=== PATIENT | female | born 1955 | race Caucasian/White ===

== ENCOUNTER 2019-08-31 08:06 | Outpatient (CLI) | payer MEDICARE, SELFPAY ==
--- NOTE | 2019-08-31 08:27 | MM_ITS ---
WS: [id number] BILATERAL DIGITAL SCREENING MAMMOGRAPHY WITH CAD CLINICAL INFORMATION: SCREENING HISTORY: Screening mammogram. No current complaints. COMPARISON: TECHNIQUE: Bilateral CC and MLO views. FINDINGS: The breasts are composed of heterogeneous fibroglandular density tissue, which can limit the detectio n of small underlying mass lesions. Stable Punctate and lucent centered calcifications with breast. N o suspicious mass, asymmetry, calcifications, or architectural distortion. No evidence of malignancy. MM/[id number] IMPRESSION: BI-RADS: 2-Benign FOLLOW UP: 1 Year Follow-up Recommend return to annual screening mammography.
== END 2019-08-31 08:07 | disposition home or self-care (01) ==
LOC: RADSHAW 08:11
PROVIDERS: PCP Nurse Practitioner Family; Visit Provider Nurse Practitioner Family
DX: Z12.31 Encounter for screening mammogram for malignant neoplasm of breast (principal)
CPT/HCPCS: 77067

== ENCOUNTER 2020-07-14 13:24 | Outpatient (CLI) | payer MEDICARE, SELFPAY ==
--- NOTE | 2020-07-14 13:30 | USCV_ITS ---
Dawna Gutierrez Age: 64 Gender: F : 1955 Exam Date: 07/14/2020 13:43 Ordering Phys: Mona Bull MD ([email or web address]) Technologist: Sandra Tompkins Exam Location: [facility] [place] Indication: STENOSIS Risk Factors: Unknown Previous Vascular Surgery: None Right Brachial BP: / Left Brachial BP: / Right Left Velocity (cm/s) Spectral Plaque Velocity (cm/s) Spectral Plaque Syst/Diast Broadening Syst/Diast Broadening 108.10/20.90 Prox CCA 111.40/ 22.00 81.60/ 16.30 Mid CCA 92.50 / 18.30 120.20/29.80 Distal CCA 93.40 / 22.90 146.40/42.90 Prox ICA 109.70/ 29.70 143.80/39.10 Mid ICA 125.20/ 42.60 114.10/28.00 Distal ICA 135.50/ 34.90 124.30 ECA 149.70 1.79 ICA/CCA 1.46 Antegrade Vertebral Antegrade 66.70/ 15.90 cm/s 51.80/ 8.50 cm/s Tri Subclavian Bi 147.6 161.4 0 0 FINDINGS Moderate to heavy heterogeneous plaques of the right bifurcation and internal carotid artery. Moderate heterogeneous plaques at the left bifurcation internal carotid artery Antegrade flow in the vertebral arteries bilaterally Intimal thickening in the common carotid arteries bilaterally Normal Doppler flow velocities in the subclavian arteries bilaterally CONCLUSIONS Moderate to heavy heterogeneous plaques of the right bifurcation and internal carotid arterywith velocity elevation consistent with 50-79% stenosis. Moderate heterogeneous plaques at the left bifurcation internal carotid artery with velocity elevation consistent with 16-49% stenosis. Compared to the study from 04/14/2018, there is worsening of the stenosis on both sides Dr Mona Bull MD [facility] (Electronically Signed) Final Date: 15 July 2020 07:43 S
== END 2020-07-14 13:25 | disposition home or self-care (01) ==
LOC: RAD 13:30
PROVIDERS: PCP Nurse Practitioner Family; Visit Provider Internal Medicine Cardiovascular Disease
DX: I65.23 Occlusion and stenosis of bilateral carotid arteries (principal)
CPT/HCPCS: 93880

== ENCOUNTER 2020-09-01 07:42 | Outpatient (CLI) | payer MEDICARE, SELFPAY ==
--- NOTE | 2020-09-01 07:44 | MM_ITS ---
WS: [id number] BILATERAL DIGITAL SCREENING MAMMOGRAPHY WITH CAD CLINICAL INFORMATION: SCREENING HISTORY: Screening mammogram. No current complaints. COMPARISON: August 31, 2019 TECHNIQUE: Bilateral CC and MLO views. FINDINGS: The breasts are composed of heterogeneous fibroglandular density tissue, which can limit the detectio n of small underlying mass lesions. No suspicious mass, asymmetry, calcifications, or architectural d istortion. No evidence of malignancy. Stable bilateral punctate calcifications. Lucent centered calci fications. MM/[place] [id number] IMPRESSION: BI-RADS: 2-Benign FOLLOW UP: 1 Year Follow-up Recommend return to annual screening mammography.
== END 2020-09-01 07:43 | disposition home or self-care (01) ==
LOC: RADSHAW 07:43
PROVIDERS: PCP Nurse Practitioner Family; Visit Provider Nurse Practitioner Family
DX: Z12.31 Encounter for screening mammogram for malignant neoplasm of breast (principal)
CPT/HCPCS: 77067

== ENCOUNTER 2021-08-14 10:40 | Outpatient (CLI) | payer MEDICARE, SELFPAY ==
--- NOTE | 2021-08-14 10:56 | CT_ITS ---
WS: [id number] LDCT LUNG CANCER SCREENING TECHNIQUE: Noncontrast CT of the chest with coronal and sagittal reformatted images. CLINICAL INFORMATION: HX OF TOBACCO USE/NICOTINE DEPENDENCE, CIGARETTES COMPARISON: CT chest 2017 DLP: 55.77 mGy.cm DIvol: 1.[address] scans at [facility] use at least one of these dose optimization techniques: automat ed exposure control; mA and/or kV adjustment per patient size (includes targeted exams where dose is matched to clinical indication); or iterative reconstruction. FINDINGS: Both lungs are well aerated. No acute pulmonary infiltrates. No focal pneumonia or pleural fluid. Dur ing glands are normal. Cholecystectomy clips. Normal caliber thoracic aorta. No mediastinal or hilar lymphadenopathy. CT/CT lung screening [id number] IMPRESSION: LUNG-RADS: 1-Negative FOLLOW UP: 12 Month: Continue annual screening with LDCT
== END 2021-08-14 10:41 | disposition home or self-care (01) ==
LOC: RAD 10:43
PROVIDERS: PCP Nurse Practitioner Family; Visit Provider Nurse Practitioner Family
DX: Z12.2 Encounter for screening for malignant neoplasm of respiratory organs (principal); Z87.891 Personal history of nicotine dependence
CPT/HCPCS: 71271

== ENCOUNTER 2021-10-04 09:33 | Outpatient (CLI) | payer MEDICARE, SELFPAY ==
--- NOTE | 2021-10-04 09:41 | MM_ITS ---
WS: [id number] SCREENING DIGITAL MAMMOGRAM WITH CAD HISTORY: SCREENING COMPARISON: 09/01/2020, 08/31/2019 and 07/02/2017 Bilateral CC and MLO views submitted. Computer aided detection analyzed. Breast composition: The breasts are heterogeneously dense, which may obscure small masses. Seen on th e LEFT MLO projection is an area of architectural distortion in the posterior LEFT breast above the n ipple line. This may be superimposed fibroglandular tissue or within the soft tissue in the posterior lateral LEFT breast. There are additional benign scattered calcifications throughout each breast. MM/[place] [id number] IMPRESSION: BI-RADS: 0-Incomplete: Need additional imaging evaluation FOLLOW UP: Need Additional Imaging LEFT breast: Spot compression views (CC and MLO). Exaggerated LEFT lateral CC. True ML. Ultrasound to follow if abnormality persists.
== END 2021-10-04 09:34 | disposition home or self-care (01) ==
PROVIDERS: PCP Nurse Practitioner Family; Visit Provider Nurse Practitioner Family
DX: Z12.31 Encounter for screening mammogram for malignant neoplasm of breast (principal)
CPT/HCPCS: 77067

== ENCOUNTER 2021-11-30 09:23 | Outpatient (CLI) | payer MEDICARE, SELFPAY ==
--- NOTE | 2021-11-30 09:34 | MM_ITS ---
WS: [id number] ADDITIONAL VIEWS LEFT MAMMOGRAM LEFT BREAST ULTRASOUND HISTORY: ABNORMAL MAMMO COMPARISON: 08/31/2019, 10/04/2021, 09/01/2020 LEFT MAMMOGRAM: Spot compression views and true ML. Asymmetry in the upper outer quadrant persists of the LEFT breast but becomes less distorted. There a re numerous scattered calcifications. The calcifications are diffuse and not focal or in a group. LEFT BREAST ULTRASOUND 2-D and color Doppler imaging submitted. Ultrasound directed from 12-3 o'clock of the LEFT breast. There is no distortion or mass identified. No cystic or solid mass. MM/[place] [id number] IMPRESSION: BI-RADS: 3-Probably Benign FOLLOW UP: 6 Month Follow-up Recommend diagnostic LEFT mammogram in 6 months and possible ultrasound. Very s light increase in the calcifications seen only on the LEFT MLO view. These are scattered on the CC projection. The area of distortion becomes less apparent on additional imaging but would like additional follow-up to ensure stability.
== END 2021-11-30 09:24 | disposition home or self-care (01) ==
LOC: RADSHAW 09:30
PROVIDERS: PCP Nurse Practitioner Family; Visit Provider Nurse Practitioner Family
DX: R92.8 Other abnormal and inconclusive findings on diagnostic imaging of breast (principal)
CPT/HCPCS: 76642; 77061

== ENCOUNTER 2022-01-08 07:44 | Outpatient (CLI) | payer MEDICARE, SELFPAY ==
--- NOTE | 2022-01-08 08:00 | USCV_ITS ---
Dawna Gutierrez Age: 66 Gender: F : 1955 Exam Date: 01/08/2022 07:58 Ordering Phys: Mona Bull MD ([email or web address]) Technologist: NICOLLE [place] [facility] [place]: EVALUATE FOR CAROTID STENOSIS Risk Factors: Previous Vascular Surgery: Right Brachial BP: / Left Brachial BP: / Right Left Velocity (cm/s) Spectral Plaque Velocity (cm/s) Spectral Plaque Syst/Diast Broadening Syst/Diast Broadening 102.50/22.10 Prox CCA 138.30/ 31.10 88.20/ 17.60 Mid CCA 104.70/ 30.90 91.50/ 22.10 Distal CCA 100.30/ 27.60 161.20/30.40 Prox ICA 132.80/ 28.90 129.00/23.50 Mid ICA 112.90/ 41.40 130.50/45.40 Distal ICA 112.90/ 28.00 153.80 ECA 121.20 1.57 ICA/CCA 0.96 Antegrade Vertebral Antegrade 60.30/ 13.50 cm/s 40.80/ 9.90 cm/s Tri Subclavian Tri 172.5 186.4 0 0 FINDINGS Moderate heterogeneous plaques at the bifurcations and proximal internal carotid arteries bilaterally Intimal thickening in the common carotid arteries bilaterally Antegrade flow in the vertebral arteries bilaterally Near normal Doppler flow velocities in the vertebral and subclavian arteries bilaterally CONCLUSIONS Moderate heterogeneous plaques at the bifurcations and proximal internal carotid arteries bilaterally with the velocity elevations, consistent with less than 50% stenosis(based on modified SRU criteria). Intimal thickening in the common carotid arteries bilaterally. Compared to the study from 07/14/2020, there may not be a significant change Dr Mona Bull MD [facility] (Electronically Signed) Final Date: 09 Jan 2022 09:04 S
== END 2022-01-08 07:45 | disposition home or self-care (01) ==
PROVIDERS: PCP Nurse Practitioner Family; Visit Provider Internal Medicine Cardiovascular Disease
DX: I65.23 Occlusion and stenosis of bilateral carotid arteries (principal); I77.9 Disorder of arteries and arterioles, unspecified; I77.3 Arterial fibromuscular dysplasia
CPT/HCPCS: 93880

== ENCOUNTER → 2022-05-21 09:58 | Outpatient (BNVA) | payer MEDICARE, SELFPAY | PROVIDERS: PCP Nurse Practitioner Family; Visit Provider Internal Medicine Cardiovascular Disease | DX: I65.22 Occlusion and stenosis of left carotid artery (principal); I10 Essential (primary) hypertension; E78.2 Mixed hyperlipidemia; F17.200 Nicotine dependence, unspecified, uncomplicated | CPT/HCPCS: 99214 ==

== ENCOUNTER 2022-06-06 09:23 | Outpatient (CLI) | payer MEDICARE, SELFPAY ==
--- NOTE | 2022-06-06 09:42 | MM_ITS ---
WS: [id number] Diagnostic LEFT MAMMOGRAM with tomosynthesis, CAD,. LEFT BREAST ULTRASOUND HISTORY: ABNORMAL LT MAMMO 6 MO F/U COMPARISON: 11/30/2021, 10/04/2021 and 09/01/2020 LEFT MAMMOGRAM: Spot compression views and true ML with tomosynthesis and sympathetic mammography. No change in the asymmetry of calcifications in the upper outer quadrant of the LEFT breast. No archi tectural distortion. Calcifications are stable. LEFT BREAST ULTRASOUND 2-D and color Doppler imaging submitted. Ultrasound is directed to the upper outer quadrant of the LEFT breast. There are no suspicious findin gs. No shadowing or mass. MM/[place] [id number] IMPRESSION: BI-RADS: 2-Benign FOLLOW UP: 6 Month Follow-up Patient to return to annual mammogram in September 2022.
== END 2022-06-06 09:24 | disposition home or self-care (01) ==
LOC: RAD 09:26
PROVIDERS: PCP Nurse Practitioner Family; Visit Provider Nurse Practitioner Family
DX: R92.8 Other abnormal and inconclusive findings on diagnostic imaging of breast (principal)
CPT/HCPCS: 76642; 77061

== ENCOUNTER → 2023-01-04 09:38 | Outpatient (BNVA) | payer MEDICARE, SELFPAY | PROVIDERS: PCP Nurse Practitioner Family; Visit Provider Nurse Practitioner Family | DX: I65.22 Occlusion and stenosis of left carotid artery (principal); I10 Essential (primary) hypertension; F17.200 Nicotine dependence, unspecified, uncomplicated | CPT/HCPCS: 99214 ==

== ENCOUNTER 2023-01-23 10:53 | Outpatient (CLI) | payer MEDICARE, SELFPAY ==
--- NOTE | 2023-01-23 11:15 | USCV_ITS ---
MattDawna Age: 67 Gender: F : 1955 Exam Date: 01/23/2023 11:16 Ordering Phys: Domi Mascorro Technologist: ROSEY Exam Location: [facility] – [place] Indication: Stenosis Risk Factors: Previous Vascular Surgery: Right Brachial BP: / Left Brachial BP: / Right Left Velocity (cm/s) Spectral Plaque Velocity (cm/s) Spectral Plaque Syst/Diast Broadening Syst/Diast Broadening 104.40/22.90 Prox CCA 126.70/ 26.10 86.10/ 22.00 Mid CCA / 91.50/ 25.40 Distal CCA 98.10 / 32.00 114.40/34.20 Prox ICA 109.20/ 29.80 152.30/37.30 Mid ICA 71.70 / 18.70 101.20/28.90 Distal ICA 88.20 / 35.30 106.60 ECA 87.40 1.46 ICA/CCA 0.86 Antegrade Vertebral Antegrade 43.60/ 13.70 cm/s 40.90/ 5.60 cm/s Tri Subclavian Bi 214.2 136.4 0 0 FINDINGS Comparison:. 01/08/22. No significant elevation of systolic or diastolic velocities. Waveforms are normal. Mild bilateral scattered calcified plaque and intimal thickening throughout the common carotid arteries and extending through the bifurcation. Antegrade vertebral arteries. CONCLUSIONS Bilateral ICA stenosis less than 50%. Mild carotid atherosclerosiss. No interval change in stenosis since prior exam. Dr. Soraya Bosch DO (Electronically Signed) Final Date: 23 Jan 2023 16:14 S
== END 2023-01-23 10:54 | disposition home or self-care (01) ==
PROVIDERS: PCP Nurse Practitioner Family; Visit Provider Nurse Practitioner Family
DX: I65.23 Occlusion and stenosis of bilateral carotid arteries (principal)
CPT/HCPCS: 93880

== ENCOUNTER 2023-06-20 07:46 | Outpatient (CLI) | payer MEDICARE, SELFPAY ==
--- NOTE | 2023-06-20 08:06 | MR_ITS ---
WS: [id number] MRI LUMBAR SPINE NONCONTRAST TECHNIQUE: Sagittal T1, T2 and STIR imaging. Axial T1 and T2 imaging. CLINICAL INFORMATION: CHRONIC LOW BACK PAIN COMPARISON: None. FINDINGS: Mild lumbar curve. No acute compression. No high-grade central canal stenosis. Mild disc bulging lowe r thoracic spine. L1-L2: Mild facet arthropathy. Spinal canal and foramen are patent. L2-L3: Mild facet arthropathy. Mild LEFT and no significant RIGHT foraminal narrowing. L3-L4: Mild annular bulging. Spinal canal and foramina are patent. Mild facet arthropathy. L4-L5: Mild annular bulging. Mild facet arthropathy. Mild bilateral foraminal narrowing. L5-S1: Mild annular bulging with osteophytic ridging. Mild facet arthropathy. Mild RIGHT foraminal na rrowing. Visualized pelvic bony structures: Paravertebral soft tissues: Normal. IMPRESSION: 1. Mild lumbar curve. No acute compression. No high-grade central canal stenosis. 2. No high-grade spinal canal or foraminal narrowing. 3. Tiny foraminal protrusions L4-5 with mild foraminal narrowing without significant nerve root impi ngement. 4. Mild disc osteophytic ridging L5-S1 without significant spinal canal narrowing. Mild RIGHT forami nal narrowing. 5. Mild facet arthropathy L4-L5 and L5-S1.
== END 2023-06-20 07:47 | disposition home or self-care (01) ==
LOC: RAD 07:48
PROVIDERS: PCP Nurse Practitioner Family; Visit Provider Nurse Practitioner Family
DX: M47.817 Spondylosis without myelopathy or radiculopathy, lumbosacral region (principal); M25.78 Osteophyte, vertebrae; G89.29 Other chronic pain
CPT/HCPCS: 72148

== ENCOUNTER → 2023-07-26 09:51 | Outpatient (BNVA) | payer MEDICARE, SELFPAY | PROVIDERS: PCP Nurse Practitioner Family; Visit Provider Nurse Practitioner Family | DX: I10 Essential (primary) hypertension (principal); I65.22 Occlusion and stenosis of left carotid artery; F17.200 Nicotine dependence, unspecified, uncomplicated | CPT/HCPCS: 99214 ==

== ENCOUNTER → 2023-07-30 07:32 | Outpatient (BNVA) | payer MEDICARE, SELFPAY | PROVIDERS: PCP Nurse Practitioner Family; Referring Provider Nurse Practitioner Family; Visit Provider Psychiatry & Neurology Neurology | DX: R20.2 Paresthesia of skin (principal); R68.89 Other general symptoms and signs; R29.898 Other symptoms and signs involving the musculoskeletal system; E55.9 Vitamin D deficiency, unspecified; M79.2 Neuralgia and neuritis, unspecified; I73.9 Peripheral vascular disease, unspecified | CPT/HCPCS: 36415; 82306; 82607; 82746; 83735; 83921; 86592; 86617; 86780; 99203 ==

== ENCOUNTER → 2023-08-15 11:59 | Outpatient (BNVA) | payer MEDICARE, SELFPAY | PROVIDERS: PCP Nurse Practitioner Family; Visit Provider Psychiatry & Neurology Neurology | DX: G56.01 Carpal tunnel syndrome, right upper limb (principal) | CPT/HCPCS: 95911 ==

== ENCOUNTER 2023-08-18 08:22 | Emergency (ER) | payer MEDICARE, MEDICAID, SELFPAY ==
[2023-08-18 08:32] VITALS: BP 138/78; PULSE 73; RESP 18; TEMP 36.7; O2SAT 97; BMI 30.5
--- NOTE | 2023-08-18 08:54 | W.ED.FEMALGU ---
HPI - Female Genitourinary General: Chief complaint: Urogenital-Female Stated complaint: frequent/burning urination Time Seen by Provider: 08/18/23 08:25 History of Present Illness: Patient presents to the ER with frequent and burning urination. Patient is finished Macrobid for urinary tract infection through the urgent care about 2 days ago. Patient said she was better while she was on it but started going downhill today with root returning symptoms. No frequency and burning. Review of Systems General: Reports: 10 or more systems reviewed and unremarkable except in HPI and below PFSH ED PFSH: Medical History Smoking Hyperlipidemia GERD (gastroesophageal reflux disease) Carotid artery disease Anxiety and depression Neuropathy Psoriasis Macular degeneration Surgical History S/P rotator cuff repair Hx of cholecystectomy Family History Mother CAD (coronary artery disease) Cancer Dementia Father CAD (coronary artery disease) Diabetes Sister Diabetes Denies family history of Clotting disorder Chronic kidney disease (CKD) Suicide Anesthesia complication Bleeding disorder Lung disease Stroke Social History Smoking and tobacco/nicotine status: current every day tobacco/nicotine user Alcohol intake: never Substance/Drug Use: never Physical Exam Const: COMMON NORMALS: no acute distress, average body habitus, patient oriented x3, no limitations, healthy appearing, alert and well nourished Neck/C-Spine: COMMON NORMALS: no JVD Chest: COMMONS NORMALS: normal inspection of the chest and normal palpation of entire chest wall Resp: COMMON NORMALS: normal respiratory effort, No retractions, No use of accessory muscles and clear to auscultation bilaterally AUSCULTATION: clear to auscultation bilaterally Cardio: COMMON NORMALS: no JVD, regular rate, regular rhythm, S1 normal heart sound present, S2 normal heart sound present, No gallops present (Cardio), No clicks present (Cardio), No murmurs present (Cardio) and No rub (Cardio) RATE: regular rate RHYTHM: regular rhythm HEART SOUNDS: S1 normal heart sound present and S2 normal heart sound present GI: COMMON NORMALS: Normal to inspection, nondistended, normoactive bowel sounds present, Soft to palpation, non-tender, No hepatosplenomegaly present and no masses PALPATION: Yes Soft to palpation and Yes No hepatosplenomegaly present Neuro: COMMON NORMALS: patient oriented x3 SENSORIUM/ORIENTATION: Yes alert Course Vital Signs: Vital signs: Vital Signs Temperature 98.1 F 08/18/23 08:32 Pulse Rate 73 08/18/23 08:32 Respiratory Rate 18 08/18/23 08:32 Blood Pressure 138/78 08/18/23 08:32 Pulse Oximetry 97 08/18/23 08:32 Oxygen Delivery Me thod Room Air 08/18/23 08:32 MDM - Female Medical Decision Making Urinalysis obtained which showed a significant urinary tract infection. Patient will be given 1 g Rocephin here in the ER and discharged home with a prescription for Levaquin 500 mg number seven 1 pill daily. Patient should have her urine rechecked when she is finished with these antibiotics. Differential Diagnosis Unlikely abdominal pain, acute appendicitis, calculus of kidney, constipation, diverticulitis, endometriosis, gastroenteritis, pancreatitis or small bowel obstruction Medical Records I reviewed the patient's medical records. Lab Data I reviewed the patient's lab results. Laboratory Results Urine Color Yellow (Yellow) 08/18/23 08:45 Urine Appearance Sl hazy (CLEAR) A 08/18/23 08:45 Urine pH 6.5 (5-7) 08/18/23 08:45 Ur Specific Donie 1.000 (1.005-1.030) L 08/18/23 08:45 Urine Protein Neg (Negative) 08/18/23 08:45 Urine Glucose (UA) Norm (Normal) 08/18/23 08:45 Urine Ketones 1+ (Negative) H 08/18/23 08:45 Urine Blood 3+ (Negative) H 08/18/23 08:45 Urine Nitrate Negative (Negative) 08/18/23 08:45 Urine Bilirubin Neg (Negative) 08/18/23 08:45 Urine Urobilinogen Norm mg/dL (Negative) 08/18/23 08:45 Ur Leukocyte Esterase 2+ (Negative) H 08/18/23 08:45 Urine RBC 0-4 /hpf (0-2) H 08/18/23 08:45 Urine WBC >100 /hpf (0-5) H 08/18/23 08:45 Ur Squamous Epith Cells 5-10 /hpf (0-5) H 08/18/23 08:45 Amorphous Sediment Not Reportable 08/18/23 08:45 Urine Bacteria 1+ /hpf (NONE) H 08/18/23 08:45 All radiology interpretation(s) finalized by discharge Discharge Plan Discharge Patient Disposition: Home Clinical Impression: Urinary tract infection Condition: Stable Prescriptions: No Action cholecalciferol (vitamin D3) 125 mcg (5,000 unit) capsule 125 mcg PO QDAY amitriptyline 50 mg tablet 50 mg PO DAILY atorvastatin 20 mg tablet 20 mg PO DAILY Otezla 30 mg tablet 30 mg PO BID omeprazole 40 mg capsule,delayed release(DR/EC) 40 mg PO DAILY alprazolam 0.25 mg tablet 0.25 mg PO BID PRN Ozempic 1 mg/dose (4 mg/3 mL) pen injector See Rx Instructions SUBCUT .COMPLEX PRN Rx Instructions: subcutaneously PRN; losartan 25 mg tablet 25 mg PO DAILY Qty: 90 3RF folic acid 1 mg tablet 1 mg PO DAILY Qty: 90 3RF Discharge Orders: Discharge ED (Routine); Ordered 08/18/23 Ordered By: Fer Cruz Referrals: Sandra Fallon FNP [Primary Care Provider] - 1 week Patient Instructions: Urinary Tract Infection - Women Activity Restrictions/Additional Instructions: Please take all your antibiotics as directed, please drink plenty of fluids to flush out your system. Please follow-up with your family practice physician within the next 7 to 10 days for further evaluation and treatment. Coding Level of Care Code ED Aircraft Inspection Record Clerk for Maye Guzmán
[2023-08-18 09:14] LABS: Add Urine Culture? Yes; Add Urine Microscopic? YES; Bacteria Urine 1+ /hpf; Bilirubin Urine Neg (Negative); Blood Urine 3+ (Negative); Glucose Urine UA Norm (Normal); Ketones Urine 1+ (Negative); Leukocyte Esterase Urine 2+ (Negative); Nitrate Urine Negative (Negative); Protein Urine Neg (Negative); RBC Urine 0-4 /hpf (0-2); Urine Appearance SL Hazy (CLEAR); Urine Color Yellow (Yellow); Urobilinogen Urine Norm (Negative); WBC Urine >100 /hpf (0-5); pH Urine 6.5 (5-7)
[2023-08-18] MEDS: cefTRIAXone 1,000 MG in water for injection-sterile 2.1 ML 1 MG IM (09:42)
[2023-08-18 09:56] VITALS: BP 138/78; PULSE 76; O2SAT 97
== END 2023-08-18 09:57 | disposition home or self-care (01) ==
PROVIDERS: Emergency Provider Emergency Medicine; PCP Nurse Practitioner Family
DX: N39.0 Urinary tract infection, site not specified (principal); Z72.0 Tobacco use; E78.5 Hyperlipidemia, unspecified; H35.30 Unspecified macular degeneration
CPT/HCPCS: 81001; 87077; 87086; 87186; 99284; J0696

== ENCOUNTER 2023-08-23 10:41 | Emergency (ER) | payer MEDICARE, MEDICAID, SELFPAY ==
[2023-08-23 10:59] VITALS: BP 120/75; PULSE 68; RESP 18; TEMP 36.6; O2SAT 92; BMI 29.9
--- NOTE | 2023-08-23 11:00 | XRR_ITS ---
PROCEDURE INFORMATION: Exam: XR Chest Exam date and time: 08/23/2023 11:21 AM Age: 67 years old Clinical indication: Cough TECHNIQUE: Imaging protocol: Radiologic exam of the chest. Views: 1 view. COMPARISON: CT lung screening [id number] 08/14/2021 11:08 AM FINDINGS: Lungs: Unremarkable. No consolidation. Pleural spaces: Unremarkable. No pleural effusion. No pneumothorax. Heart/Mediastinum: Unremarkable. No cardiomegaly. Bones/joints: Unremarkable. XR/XR chest 1V portable [id number] IMPRESSION: No acute findings.
--- NOTE | 2023-08-23 11:07 | ECG_ITS ---
[facility] Test Date: 2023-08-23 Pat Name: Dawna Gutierrez Department: Room: Gender: Female Group Sales Manager: : 1955 Requested By: Becca Young Order Number: [id number] Javan MD: Naren Ray M.D. Measurements Intervals [place] Rate: 65 P: 58 MO: 127 QRS: 79 QRSD: 93 T: 38 QT: 401 QTc: 420 Interpretive Statements SINUS RHYTHM NONSPECIFIC ST & T-WAVE ABNORMALITY No previous ECG available for comparison Electronically Signed On 08-23-2023 14:55:32 CORRECTIONS CASEWORKER by Naren Ray M.D. [id number]
--- NOTE | 2023-08-23 11:18 | ED_ITS ---
HPI - SOB/Dyspnea General: Chief Complaint: Shortness of Breath/Dyspnea Stated Complaint: cough,congestion Time Seen by Provider: 08/23/23 10:57 Source: patient Mode of arrival: ambulatory Limitations: no limitations History of Present Illness: HPI Narrative: 67-year-old female who states that over the last 4 days she has been having cough congestion body aches. States she seen in urgent care she is currently on steroids and albuterol she was seen the day before Ella actually on the Levaquin for a UTI nerve other symptoms started after that. She states she has had some worse wheezing today she is in no distress here. Denies any chest pain. Associated symptoms: Deny abdominal pain, chest pain, fever(s), nausea or vomiti ng Review of Systems Const: Denies: fever(s), chills, body aches or change in appetite ENMT: Reports: nasal congestion; Denies: throat pain or dental pain Card: Denies: chest pain Resp: Reports: non-productive cough and wheezing; Denies: dyspnea GI: Denies: abdominal pain, nausea, vomiting or diarrhea Musc: Denies: neck pain or back pain Skin/Breast: Denies: rash Neuro: Denies: headache(s) PFSH ED PFSH: Medical History Smoking Hyperlipidemia GERD (gastroesophageal reflux disease) Carotid artery disease Anxiety and depression Neuropathy Psoriasis Macular degeneration Surgical History S/P rotator cuff repair Hx of cholecystectomy Family History Mother CAD (coronary artery disease) Cancer Dementia Father CAD (coronary artery disease) Diabetes Sister Diabetes Denies family history of Clotting disorder Chronic kidney disease (CKD) Suicide Anesthesia complication Bleeding disorder Lung disease Stroke Social History Smoking and tobacco/nicotine status: current every day tobacco/nicotine user Alcohol intake: never Substance/Drug Use: never Physical Exam Const: COMMON NORMALS: no acute distress, patient oriented x3 and healthy appearing HENMT: COMMON NORMALS: normocephalic and atraumatic HEAD & SCALP: normocephalic and atraumatic Neck/C-Spine: COMMON NORMALS: full ROM and supple Chest: COMMONS NORMALS: normal inspection of the chest Resp: COMMON NORMALS: normal respiratory effort and No retractions AUSCULTATION: wheezes Cardio: COMMON NORMALS: regular rate, regular rhythm and No murmurs present (Cardio) RATE: regular rate RHYTHM: regular rhythm Extremity: COMMON NORMALS: normal to inspection and full ROM Neuro: COMMON NORMALS: patient oriented x3, moves all extremities and no focal motor deficits Psych: COMMON NORMALS: mental status grossly normal, Normal thought process present and cooperative THOUGHT PROCESS: Normal thought process present Skin: COMMON NORMALS: no rashes or lesions noted and no wounds GENERAL SKIN EXAM: no rashes or lesions noted Course Vital Signs: Vital signs: Vital Signs Temperature 98 F 08/23/23 10:59 Pulse Rate 66 08/23/23 12:02 Respiratory Rate 18 08/23/23 11:57 Blood Pressure 137/70 08/23/23 11:32 Pulse Oximetry 91 08/23/23 11:57 Oxygen Delivery Me thod Room Air 08/23/23 11:57 MDM - SOB/Dyspnea Medical Decision Making Patient presents with cough congestion likely a viral upper respiratory infection x-ray shows no pneumonia she is to continue her antibiotics steroids and albuterol she is follow-up with PCP and return if worsening. Medical Records I reviewed the patient's medical records. Lab Data I reviewed the patient's lab results. Labs/Radiology: Radiology Impressions Chest X-Ray 08/23/23 11:00 IMPRESSION: No acute findings. Laboratory Results Influenza Type A Ag negative (Negative) 08/23/23 11:22 Influenza Type B Ag negative (Negative) 08/23/23 11:22 SARS-CoV-2 Ag (Rapid) negative (Negative) 08/23/23 11:22 All radiology interpretation(s) finalized by discharge EKG Data EKG 1: I personally reviewed and interpreted this EKG as follows: EKG Interpretation Date: 08/23/23 EKG interpretation time: 11:07 Interpretation: nsr hr [address] or t wave abnormalities qrs 93 qtc 413 Discharge Plan Discharge Patient Disposition: Home Clinical Impression: Upper respiratory infection Qualifiers: URI type: unspecified URI Qualified Code(s): J06.9 - Acute upper respiratory infection, unspecified Condition: Stable Prescriptions: No Action cholecalciferol (vitamin D3) 125 mcg (5,000 unit) capsule 125 mcg PO QDAY amitriptyline 50 mg tablet 50 mg PO DAILY atorvastatin 20 mg tablet 20 mg PO QPM Otezla 30 mg tablet 30 mg PO BID omeprazole 40 mg capsule,delayed release(DR/EC) 40 mg PO DAILY alprazolam 0.25 mg tablet 0.25 mg PO BID PRN (Reason: Anxiety) Ozempic 1 mg/dose (4 mg/3 mL) pen injector 0.5 mg SUBCUT Q7D Rx Instructions: ON SATURDAY losartan 25 mg tablet 25 mg PO DAILY Qty: 90 3RF folic acid 1 mg tablet 1 mg PO DAILY Qty: 90 3RF levofloxacin 500 mg tablet 500 mg PO DAILY 7 Days Qty: 7 0RF promethazine-DM 6.25-15 mg/5 mL Syrup 5 ml PO Q4H PRN (Reason: Cough) ketoconazole 2 % shampoo 1 applic TOPICAL Q30D prednisone 20 mg tablet 20 mg PO DAILY Ventolin HFA 90 mcg/actuation HFA aerosol inhaler 2 puff INHALATION Q6H PRN (Reason: Shortness Of Breath Or Wheezing) Discharge Orders: Discharge ED (Routine); Ordered 08/23/23 Ordered By: Becca Young Referrals: Sandra Fallon FNP [Primary Care Provider] - 1-3 days Discharge Diet: Advance as tolerated Discharge Activity: Resume usual activity Patient Instructions: Upper Respiratory Infection (ED) Coding Level of Care Code ED Lay Out Drafter for Maye Guzmán
[2023-08-23 11:32] VITALS: BP 137/70; PULSE 70; RESP 16; O2SAT 92
[2023-08-23] MEDS: ipratropium-albuterol 3 mL Neb INHALATION (11:56)
[2023-08-23 11:57] VITALS: PULSE 63; RESP 18; O2SAT 91
[2023-08-23 11:58] LABS: Influenza A by IFA negative (Negative); Influenza B by IFA negative (Negative); SARS Covid-2 Antigen negative (Negative)
[2023-08-23 12:02] VITALS: PULSE 66
[2023-08-23 12:18] VITALS: BP 131/67; PULSE 70; RESP 18; O2SAT 91
== END 2023-08-23 12:21 | disposition home or self-care (01) ==
PROVIDERS: Emergency Provider Emergency Medicine; PCP Nurse Practitioner Family
DX: J06.9 Acute upper respiratory infection, unspecified (principal); Z72.0 Tobacco use; E78.5 Hyperlipidemia, unspecified; H35.30 Unspecified macular degeneration; Z11.52 Encounter for screening for COVID-19
CPT/HCPCS: 71045; 87426; 87804; 93005; 94640; 99285

== ENCOUNTER 2023-09-20 07:39 | Outpatient (CLI) | payer MEDICARE, SELFPAY ==
--- NOTE | 2023-09-20 08:00 | USCV_ITS ---
Dawna Gutierrez Age: 67 Gender: F : 1955 Exam Date: 09/20/2023 07:57 Ordering Phys: Godfrey Rai MD Technologist: THANG [place] [facility] [place] Risk Factors: Previous Vascular Surgery: RIGHT LEFT BP: 137.0 / 77.00 BP: 144.0/ 88.00 0 0 Waveform Velocity (cm/s) Velocity (cm/s) Waveform Triphasic 165.8 Iliac Prox 142.8 Triphasic Triphasic 164.9 Iliac Mid 126.0 Triphasic Triphasic 158.1 Iliac Distal 0.0 Triphasic Triphasic 140.7 AP OPERATOR 164.3 Triphasic Triphasic 101.2 SFA Prox 114.6 Triphasic Triphasic 124.3 SFA Mid 108.8 Triphasic Triphasic SFA Dist Triphasic 81.6 86.0 Triphasic 67.5 POP 78.3 Triphasic Biphasic 75.3 WRAPPER STEMMER OPERATOR 64.9 Triphasic Biphasic 54.1 DPA 40.2 Biphasic 1.1 MARLENA 1.1 FINDINGS Resting MARLENA 1.1 on the right side and 1.1 bilaterally. The duplex scan revealed intimal thickening and minimal plaques in the iliac and femoral arteries bilaterally. Normal/near normal arterial Doppler waveforms and velocities CONCLUSIONS Normal resting ABIs bilaterally Normal/near normal arterial Doppler velocities and waveforms. No evidence of any significant arterial obstruction, based on the above findings. Dr Mona Bull MD [facility] (Electronically Signed) Final Date: 20 September 2023 18:15 S
== END 2023-09-20 07:40 | disposition home or self-care (01) ==
LOC: RAD 07:39
PROVIDERS: PCP Nurse Practitioner Family; Visit Provider Psychiatry & Neurology Neurology
DX: I73.9 Peripheral vascular disease, unspecified (principal); R29.898 Other symptoms and signs involving the musculoskeletal system; R20.2 Paresthesia of skin
CPT/HCPCS: 93925

== ENCOUNTER 2023-10-14 08:46 | Outpatient (CLI) | payer MEDICARE, SELFPAY ==
--- NOTE | 2023-10-14 09:00 | MM_ITS ---
WS: [id number] BILATERAL SCREENING DIGITAL TOMOSYNTHESIS MAMMOGRAM WITH CAD HISTORY: SCREENING COMPARISON: 06/06/2022, 11/30/2021 and 07/16/2018 Bilateral CC and MLO views with tomosynthesis and synthetic mammography submitted. Computer aided det ection analyzed. Breast composition: There are scattered areas of fibroglandular density. No suspicious masses, microc alcifications or architectural distortion. Reidentified is the mild asymmetry and slight distortion i n the central posterior LEFT breast which has been present on multiple prior studies. Numerous benign calcifications have slightly increased in number. IMPRESSION: MM/[place] [id number] BI-RADS: 2-Benign FOLLOW UP: 1 Year Follow-up
== END 2023-10-14 08:47 | disposition home or self-care (01) ==
LOC: RAD 08:47
PROVIDERS: PCP Nurse Practitioner Family; Visit Provider Nurse Practitioner Family
DX: Z12.31 Encounter for screening mammogram for malignant neoplasm of breast (principal); R92.323 Mammographic fibroglandular density, bilateral breasts; N64.89 Other specified disorders of breast; R92.1 Mammographic calcification found on diagnostic imaging of breast
CPT/HCPCS: 77063; 77067

== ENCOUNTER → 2024-01-09 10:14 | Outpatient (BNVA) | payer MEDICARE, SELFPAY | PROVIDERS: PCP Nurse Practitioner Family; Visit Provider Psychiatry & Neurology Neurology | DX: R20.2 Paresthesia of skin (principal); R68.89 Other general symptoms and signs; R29.898 Other symptoms and signs involving the musculoskeletal system | CPT/HCPCS: 99212 ==

== ENCOUNTER → 2024-01-21 09:51 | Outpatient (BNVA) | payer MEDICARE, SELFPAY | PROVIDERS: PCP Nurse Practitioner Family; Visit Provider Internal Medicine Cardiovascular Disease | DX: I65.23 Occlusion and stenosis of bilateral carotid arteries (principal); F17.200 Nicotine dependence, unspecified, uncomplicated; E78.2 Mixed hyperlipidemia; I10 Essential (primary) hypertension | CPT/HCPCS: 99214 ==

== ENCOUNTER 2024-01-28 07:55 | Outpatient (CLI) | payer MEDICARE, SELFPAY ==
--- NOTE | 2024-01-28 08:00 | USCV_ITS ---
Matt Dawna Age: 68 Gender: F : 1955 Exam Date: 01/28/2024 08:04 Ordering Phys: Mona Bull MD ([email or web address]) Technologist: DARYL [place] [facility] [place]: stenosis Risk Factors: Previous Vascular Surgery: Right Brachial BP: / Left Brachial BP: / Right Left Velocity (cm/s) Spectral Plaque Velocity (cm/s) Spectral Plaque Syst/Diast Broadening Syst/Diast Broadening 123.90/18.10 Prox CCA 86.20 / 16.80 92.90/ 19.90 Mid CCA 91.60 / 27.70 92.90/ 23.50 Distal CCA 93.50 / 27.70 134.80/34.60 Prox ICA 84.20 / 25.10 77.30/ 21.10 Mid ICA 85.70 / 28.20 65.50/ 17.80 Distal ICA 80.50 / 21.90 132.40 ECA 75.50 1.50 ICA/CCA 1.40 Antegrade Vertebral Antegrade 45.00/ 11.20 cm/s 62.00/ 17.90 cm/s Tri Subclavian Bi 210.0 134.1 0 0 FINDINGS Comparison:. 01/23/23 Mild tubulence without stenosis. Diffuse bilateral scattered calcified plaque and intimal thickening throughout the common carotid arteries and extending through the bifurcation. Antegrade vertebral arteries. Mid to distal ICA's not well visualized due to technique. CONCLUSIONS Bilateral ICA stenosis less than 50%. No interval change in stenosis since prior exam. Dr. Soraya Bosch DO (Electronically Signed) Final Date: 28 January 2024 09:52 S
== END 2024-01-28 07:56 | disposition home or self-care (01) ==
LOC: RAD 07:55
PROVIDERS: PCP Nurse Practitioner Family; Visit Provider Internal Medicine Cardiovascular Disease
DX: I65.23 Occlusion and stenosis of bilateral carotid arteries (principal)
CPT/HCPCS: 93880

== ENCOUNTER → 2024-03-03 09:28 | Outpatient (BNVA) | payer MEDICARE, SELFPAY | PROVIDERS: PCP Nurse Practitioner Family; Visit Provider Podiatrist Foot & Ankle Surgery | DX: M79.671 Pain in right foot (principal); M79.672 Pain in left foot; Q82.8 Other specified congenital malformations of skin; M10.9 Gout, unspecified | CPT/HCPCS: 17110; 73630; 99203 ==

== ENCOUNTER 2024-05-11 14:09 | Outpatient (CLI) | payer MEDICARE, SELFPAY ==
--- NOTE | 2024-05-11 14:11 | CT_ITS ---
WS: [id number] CT NECK WITH AND WITHOUT CONTRAST HISTORY: MASS OF L PAROTID GLAND TECHNIQUE: Contiguous 2 mm axial images are performed through the neck with and without intravenous c ontrast. Sagittal and coronal reformats are also submitted. All CT scans at [facility] use at least one of these dose optimization techniques: automated exposure control; mA and/or kV adjustment per patient size (includes targeted exams where dose is matched to clinical indication); or iterativ e reconstruction. CONTRAST: CONTRAST: Omnipaque 350; 100 mL IV. DLP: 336.14 mGy.cm COMPARISON: Ultrasound 04/20/2024 Well-circumscribed high density mass with enhancement centered in the superior LEFT parotid gland. La rge dominant mass measures 1.7 x 1.9 x 1.8 cm and is surrounded by parotid tissue. There is a separat e similar ileal enhancing mass in the tail of the parotid gland measuring 0.7 x 0.8 x 1.0 cm. Both of these nodules are in the superficial gland. There are a few additional enhancing nodules within the parotid which are probably lymph nodes. RIGHT parotid: Small intraparotid lymph nodes. No well-circumscribed enhancing mass. Small level 1, level 2 and level 3 lymph nodes. The largest lymph node at level 2A is 9 mm in transve rse diameter. Similar lymph node on the RIGHT. Nasopharynx, oropharynx and larynx are negative. Vocal cords are normal. No tongue base abnormality. No significant paranasal sinus disease. Mastoid air cells are clear. Visualized calvarium and intracr anial structures are negative. CT/CT neck wo/w con [id number] IMPRESSION: 1. Two well-circumscribed enhancing masses in the superficial LEFT parotid. Th e largest in the superior parotid measures 1.7 x 1.9 x 1.8 cm. The smaller paro tid mass is in the tail measuring 0.7 x 0.8 x 1.0 cm. Differential includes bot h benign and malignant etiologies. 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 This is a benign tumor but usually resected due to risk of malignant degene ration. Recommend evaluation by ENT. 2. Negative RIGHT parotid gland. 3. Small, subcentimeter bilateral level 3 lymph nodes.
[2024-05-11] MEDS: iohexol 350 mg/mL 500 mL Btl (per mL) IV (15:07)
== END 2024-05-11 14:10 | disposition home or self-care (01) ==
LOC: RAD 14:09
PROVIDERS: PCP Nurse Practitioner Family; Visit Provider Nurse Practitioner Family
DX: D37.030 Neoplasm of uncertain behavior of the parotid salivary glands (principal)
CPT/HCPCS: 70492

== ENCOUNTER 2024-09-01 11:19 | Observation (INO) | payer MEDICARE, SELFPAY ==
[2024-09-01] VITALS (20 sets, daily range): BP systolic 106–128; BP diastolic 52–66; PULSE 64–90; RESP 14–19; TEMP 36.1–37.1; O2SAT 91–98; BMI 25.2; BMI 24.7
[2024-09-01 06:31] LABS: Glucose Point of Care 110 mg/dL (70-110)
[2024-09-01] MEDS: sodium chloride 0.9% 1,000 ML 30 ML IV (06:31)
--- NOTE | 2024-09-01 06:53 | W.PM.OPSUD ---
Surgery/Procedure H&P Update DATE OF PROCEDURE: September 01, 2024 DATE H&P PERFORMED: 08/07/24 CHANGES TO PREVIOUS DOCUMENTATION: None PRIMARY INDICATION FOR PROCEDURE: Left parotid mass PLANNED PROCEDURE: Operation Date: 09/01/24 07:00 Proposed Procedures p Parotidectomy(Left) - Dewey Tolbert MD s Abdominal Fat Graft(Not Applicable) - Dewey Tolbert MD
[2024-09-01] MEDS: ceFAZolin 2,000 mg SDV 2000 MG IVP ×3 (07:05→22:07)
--- NOTE | 2024-09-01 07:20 | ANES.PREANE2 ---
Pre-Anesthetic Assessment Height/Weight: Height 1.8 m Weight 82.1 kg Temp Pulse Resp BP Pulse Ox O2 Del Method 98.0 F 64 17 123/61 97 Room Air 09/01/24 06:05 09/01/24 06:05 09/01/24 06:05 09/01/24 06:05 09/01/24 06:05 09/01/24 06:05 Operation Date: 09/01/24 07:00 Proposed Procedures p Parotidectomy(Left) - Dewey Tolbert MD s Abdominal Fat Graft(Not Applicable) - Dewey Tolbert MD Familial anesthetic complications: none Was Beta Thai taken within 24 hours: N/A Was Clonidine taken within 24 hours: N/A Last intake: Intake Last Liquid Date 08/31/24 Last Liquid Time 22:00 Last Solid Date 08/31/24 Last Solid Time 20:00 Social Tobacco and No alcohol Exam alert, oriented x 3 and regular rate & rhythm Airway Submandibular: within normal limits Cervical ROM: within normal limits Mallampati: Class II Dentition: false (Implanted upper and lower) CV/HEM Hypertension and Peripheral Vascular Disease GI Gastroesophageal Reflux Disease Metabolic Diabetes Mellitus Anesthetic Plan ASA status: 3 Anesthesia: General Medications/Allergies Home Medications Medication Instructions Recorded Confirmed Last Taken Type amitriptyline 50 mg tablet 50 mg PO DAILY 06/20/20 08/31/24 08/31/24 History apremilast 30 mg tablet (Otezla) 30 mg PO BID 06/20/20 08/31/24 08/31/24 History atorvastatin 20 mg tablet 20 mg PO QPM 06/20/20 08/31/24 08/31/24 History alprazolam 0.25 mg tablet 0.25 mg PO BID PRN Anxiety 05/22/21 08/31/24 08/31/24 History omeprazole 40 mg capsule,delayed 40 mg PO DAILY 05/21/22 08/31/24 08/31/24 History release losartan 25 mg tablet 25 mg PO DAILY #90 tabs 12/03/22 09/01/24 08/30/24 Rx semaglutide 1 mg/dose (4 mg/3 mL) 0.5 mg SUBCUT Q7D 07/26/23 08/31/24 08/23/24 History subcutaneous pen injector (Ozempic) folic acid 1 mg tablet 1 mg PO DAILY #90 tabs 08/20/24 08/31/24 08/31/24 Rx cholecalciferol (vitamin D3) 1,250 1,250 mcg PO .Q14D 08/31/24 08/31/24 Unknown History mcg (50,000 unit) capsule gluc imum-iebkaccahdfx-mhyesof 1 ea mucous membrane PRN 08/31/24 08/31/24 08/31/24 History mouthwash Allergies Allergy/AdvReac Type Severity Reaction Status Date / Time No Known Allergies Allergy Verified 09/01/24 06:01 Current Medications Generic Name Dose Route Start Last Admin Trade Name Freq PRN Reason Stop Dose Admin Sodium Chloride 1,000 mls @ 30 mls/hr 09/01/24 06:00 09/01/24 06:31 Sodium Chloride 0.9% IV 09/02/24 05:59 30 mls/hr .Q24H SHAD Administration PFSH Anesthesia Medical History Smoking Hyperlipidemia GERD (gastroesophageal reflux disease) Carotid artery disease Anxiety and depression Neuropathy Psoriasis Macular degeneration Surgical History S/P rotator cuff repair Hx of cholecystectomy Family History Mother CAD (coronary artery disease) Cancer Dementia Father CAD (coronary artery disease) Diabetes Sister Diabetes Denies family history of Clotting disorder Chronic kidney disease (CKD) Suicide Anesthesia complication Bleeding disorder Lung disease Stroke Social History Smoking and tobacco/nicotine status: never used tobacco/nicotine Alcohol intake: never Substance/Drug Use: never Data Anesthesia Cardiac Studies: No Data to Display
[2024-09-01] MEDS: ceFAZolin 1,000 mg SDV 1000 MG IRRIGATION (08:03)
[2024-09-01] MEDS: lidocaine-epi 1% 20 mL INJ 10 ML INJECTION (08:03)
[2024-09-01] MEDS: neomycin-poly-bacitracin oint 28 gm 1 APPLIC TOPICAL (09:31)
[2024-09-01] MEDS: fluorescein 1 mg Strip 2 MG XX (09:46)
[2024-09-01] MEDS: EPINEPHrine 1 mg/mL INJ 2 MG XX (09:46)
--- NOTE | 2024-09-01 09:53 | PC.NURSE ---
Notified family (Tracey) of status of case. All questions answered.
[2024-09-01] MEDS: thrombin 5,000 unit SDV 5000 UNIT XX (10:11)
--- NOTE | 2024-09-01 11:11 | P.OP_ITS ---
Operative Report Date of procedure: September 01, 2024 Pre-op diagnosis: Left parotid gland mass Post-op diagnosis: same Post-op findings: 2cm left preauricular mass of the superficial parotid lobe Procedure done: 1) Left superficial parotidectomy 2) Left abdominal fat graft harvest Implants: None Specimens removed/disposition: Left superficial parotid mass Pathology: Left superficial parotid mass Surgeon: Dewey Toblert Surgeon: Dewey Tolbert MD Imaging System Administrator: Kristian Black Anesthesia: General Estimated blood loss (mL): 10 IV fluids (mL): 1,900 Urine output (mL): 200 Complications: None Findings: 2cm left parotid mass Condition: stable Disposition: PACU Brief History: 68 yo wf with a h/o a left parotid mass who desires surgical therapy. Procedure: The patient was identified in the preop holding area and was taken to the operating room where she was placed on the operating table in the supine position. Anesthesia was obtained with general endotracheal anesthesia and the table was then turned 180 degrees. The patient's face was turned to the right exposing the left face to the operating surgeon and the Nirvana nerve monitoring system was placed on the patient and calibrated. A modified Kendrick incision was marked out on the patient's left face and was injected with local anesthesia. The patient was then prepped and draped in the usual sterile fashion. An in cision was also drawn out on the left lower quadrant of the abdomen and this area was was also prepped and draped in the usual sterile fashion. The left facial incision was made with a 15 blade and a subcutaneous plane was developed over the left face with Metzenbaum scissors. At this point a broad dissection was developed along the posterior edge of the left parotid gland it from the sternocleidomastoid muscle and the tragal cartilage - this was performed along a broad front. The deepest portion of the dissection was in the tympanomastoid suture line. Using the Nirvana nerve monitoring hemostat, the facial nerve was dissected free in this location and was identified both visually and electrically. The dissection of the facial nerve proceeded anteriorly to the pes anserinus and the individual upper lower branches of the facial nerve were dissected free from the overlying superficial parotid tissue and mass. This was performed in a stepwise fashion while protecting the facial nerve branches using the Moran dissector, the nerve monitoring nerve dissector, and microbipolar cautery to dissect the mass free from the surrounding parotid tissue with a cuff of normal tissue. Once the mass had been removed, the facial nerve was inspected and was found to be intact both visually and electrically. 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 At this point the incision of the left lower abdomen was made with a 15 blade and a fat graft was harvested with electrocautery. The left abdominal wound was then closed with interrupted 4-0 Monocryl sutures in the subcu and a running 3-0 Prolene on skin. The fat graft was then cut to the appropriate size and was then placed into the surgical defe ct of the left face to correct the associated parotid tissue defect. A drain was placed in the wound and the wound was then closed with interrupted 4-0 Monocryl suture subcu and running 5-0 Prolene on skin. At this point the facial wounds were cleaned and covered with triple antibiotic ointment. The procedure was then terminated and control of the patient was returned to anesthesia where she underwent an uneventful reversal of anesthesia and extubation and was taken to recovery in stable condition. There were no operative or anesthetic complications.
--- NOTE | 2024-09-01 11:32 | PC.NURSE ---
1132 - Dr Tolbert bedside - noted slight weakness to left side of pts mouth/smile - no further orders rec'd
--- NOTE | 2024-09-01 11:58 | PC.NURSE ---
1147 - to room 273 - accepted per Norma RN - BP 113/65 - pulse 76 - 94% temp 97.6 - Left neck incision c/d/i - with radha compressed and empty
[2024-09-01] MEDS: lactated ringers 1,000 ML 100 ML IV ×2 (12:08→22:08)
[2024-09-01] MEDS: HYDROcodone-acetaminophen 5-325 mg Tablet 1 TAB PO ×2 (13:11→20:21)
--- NOTE | 2024-09-01 13:45 | ANE.PACU2 ---
Inpatient post-anesthesia follow up: Airway intact: Yes Vital signs: Temperature 97.6 F Pulse Rate 67 Respiratory Rate 16 Blood Pressure 113/64 Pulse Oximetry 93 Oxygen Delivery Me thod Room Air Oxygen Flow Rate Fraction of Inspir ed Oxygen Hydration adequate: Yes Nausea and vomiting: No Pain level: 3 Mental status: Baseline
[2024-09-01] MEDS: famotidine 20 mg/2 mL INJ IVP (14:09)
--- NOTE | 2024-09-01 14:18 | PC.NURSE ---
Left side of pt's face with droop. Dr. Tolbert aware as pt presented this way in PACU. Dr. Tolbert states due to numbing medication. Pt's lead customer service representative strong and equal.
[2024-09-01] MEDS: atorvastatin 40 mg Tablet 20 MG PO (17:22)
--- NOTE | 2024-09-01 17:44 | PM.PN ---
Subjective Subjective: 68 yo wf night of surgery s/p left superficial parotidectomy. The patient reports some perincisional pain and numbness, but is o/w without c/o. Medications: Reviewed: Yes Vitals/I&O/Wt Last Vital Signs Temp 98.8 F 09/01/24 16:50 Pulse 75 09/01/24 16:50 Resp 16 09/01/24 16:50 BP 107/61 09/01/24 16:50 Pulse Ox 92 09/01/24 16:50 O2 Del Method Room Air 09/01/24 16:50 09/01/24 09/01/24 09/01/24 06:59 14:59 22:59 Intake Total 2009 240 / 2250 Output Total 410 / 410 Balance 1600 / 1600 240 / 1840 Weight last 48 hrs Weight 80.484 kg Weight 82.1 kg Physical Exam Const: COMMON NORMALS: no acute distress and patient oriented x3 GENERAL APPEARANCE: comfortable and well kempt HENMT: COMMON NORMALS: normocephalic and atraumatic HEAD & SCALP: normocephalic and atraumatic FACE & SINUS: other (Left facial wound intact without swelling. ) Eye: COMMON NORMALS: EOMs intact bilaterally Neuro: COMMON NORMALS: patient oriented x3 CRANIAL NERVES: Yes other (Weakness of left eye and left upper buccal branches.) COORDINATION/BALANCE: other (There is moderate left eye weakness - eye closure with effort.) COORDINATION: other (There is moderate left eye weakness - eye closure with effort.) Psych: APPEARANCE: Yes well kempt Urinary Catheter Management: Brown: Cath Placed During This Visit: yes Urinary Catheter Date of Insertion: 09/01/24 Urinary Catheter Time of Insertion: 07:38 A&P Assessment and plan (1) Parotid adenoma: Impression: Doing well s/p left superficial parotidectomy except as noted below Plan: - Overnight observation - Closed suction drainage - Pain control - Anticipate d/c tomorrow (2) Facial nerve palsy: Impression: The Left facial nerve was visually intact at the end of surgery. Most likely temporary palsey Plan: - Eye protection - IV Decadron - Will observe - no revision surgery needed. Attestations Medical Necessity Statement*: The patient requires overnight observation for pain control and airway observation. Coding Level of Care Code Acute Code for [facility] Fwd Diagnoses Parotid adenoma D11.0 Facial nerve palsy G51.0
[2024-09-01] MEDS: dexamethasone 10 mg/mL INJ IVP (18:02)
[2024-09-01] MEDS: ALPRAZolam 0.5 mg Tablet 0.25 MG PO (20:20)
[2024-09-01] MEDS: amitriptyline 25 mg Tablet 50 MG PO (20:21)
[2024-09-02] VITALS: BP 105/54; PULSE 74; RESP 14; TEMP 36.9; O2SAT 93
[2024-09-02] MEDS: dexamethasone 10 mg/mL INJ IVP ×2 (00:12→05:35)
[2024-09-02 04:00] VITALS: BP 112/57; PULSE 72; RESP 14; TEMP 36.9; O2SAT 94
[2024-09-02 04:49] VITALS: BMI 25.5
--- NOTE | 2024-09-02 05:29 | PM.PN ---
Subjective Subjective: 68 yo wf POD #1 s/p right superficial parotidectomy. The patient has some left eye and left upper lip weakness, but is o/w without c/o. Medications: Reviewed: Yes Vitals/I&O/Wt Last Vital Signs Temp 98.4 F 09/02/24 04:00 Pulse 72 09/02/24 04:00 Resp 14 09/02/24 04:00 BP 112/57 09/02/24 04:00 Pulse Ox 94 09/02/24 04:00 O2 Del Method Room Air 09/02/24 04:00 09/01/24 09/01/24 09/02/24 14:59 22:59 06:59 Intake Total 2009 1360 / 3370 Output Total 410 / 410 550 / 960 Balance 1600 / 1600 810 / 2410 Weight last 48 hrs Weight 83.206 kg Weight 80.484 kg Weight 82.1 kg Physical Exam Const: COMMON NORMALS: no acute distress, patient oriented x3 and alert GENERAL APPEARANCE: cooperative HENMT: COMMON NORMALS: normocephalic, atraumatic and Normal external nose present HEAD & SCALP: normocephalic and atraumatic FACE & SINUS: other (Left facial wound intact without swelling/redness.) NOSE: Normal external nose present Eye: ALIGNMENT: Yes other (Pt able to close left eye with effort) Resp: COMMON NORMALS: normal respiratory effort, No use of accessory muscles and clear to auscultation bilaterally AUSCULTATION: clear to auscultation bilaterally Cardio: COMMON NORMALS: regular rate, regular rhythm and No murmurs present (Cardio) RATE: regular rate RHYTHM: regular rhythm GI: COMMON NORMALS: Normal to inspection, nondistended, normoactive bowel sounds present Neuro: COMMON NORMALS: patient oriented x3 SENSORIUM/ORIENTATION: Yes alert and Yes other (Weakness of left upper lip) Urinary Catheter Management: Brown: Cath Placed During This Visit: yes, but has since been removed by the nurse Reason for Continuing Indwelling Catheter: Perioperative Use in Selected Surgeries Urinary Catheter Date of Insertion: 09/01/24 Urinary Catheter Time of Insertion: 07:38 Date Urinary Catheter Removed: 09/01/24 Time Urinary Catheter Discontinued: 18:01 A&P Assessment and plan (1) Parotid adenoma: Impression: POD #1 s/p left superficial parotidectomy doing well except as noted below Plan: - D/C to home - [place] () tabls: take 1-2 tabs po Q5 hours prn pain, #25, NR - Apply RESHMA to left facial wound TID - Keep wound dry for 48 hours - Empty ROSALIND drain and record output QD - Notify Dr. Tolbert for any problems - F/U in Dr. Tolbert's office in 48 hours (2) Facial nerve palsy: Impression: Post surgical with intact facial nerve Plan: - Lacrilube to left eye at night - Prednisone taper - I will reassess at f/u Attestations Medical Necessity Statement*: The patient required overnight observation of her airway and pain control. Coding Level of Care Code Acute Code for [facility] Fwd Diagnoses Parotid adenoma D11.0 Facial nerve palsy G51.0
[2024-09-02] MEDS: HYDROcodone-acetaminophen 5-325 mg Tablet 1 TAB PO (06:35)
[2024-09-02 07:33] VITALS: BP 107/55; PULSE 70; RESP 16; TEMP 36.8; O2SAT 94
[2024-09-02 08:43] VITALS: BP 107/55; PULSE 70; RESP 16; TEMP 36.8; O2SAT 94
--- NOTE | 2024-09-02 08:43 | PC.NURSE ---
Discharge instructions provided to pt. NO questions or concerns voiced. To private vehicle via wheelchair with all belongings.
== END 2024-09-02 08:45 | disposition home or self-care (01) ==
LOC: MEDSURG 11:19
PROVIDERS: Admitting Provider Specialist; PCP Nurse Practitioner Family; Visit Provider Specialist
PROC: (CPT 42410; principal; 2024-09-01 07:00)
PROC: (CPT 15769; 2024-09-01 07:00)
DX: D11.0 Benign neoplasm of parotid gland (principal); G51.0 Bell's palsy; I10 Essential (primary) hypertension; K21.9 Gastro-esophageal reflux disease without esophagitis; E11.40 Type 2 diabetes mellitus with diabetic neuropathy, unspecified; E78.5 Hyperlipidemia, unspecified; F41.9 Anxiety disorder, unspecified; F32.A Depression, unspecified
CPT/HCPCS: 15769; 42415; 36416; 51702; 82962; 88305; 88307; 88331; G0378; J0171; J0330; J0690; J1100; J2371; J2405; J2704; J3010; J3490; J7030; J7120

== ENCOUNTER 2024-12-14 09:49 | Outpatient (CLI) | payer MEDICARE, SELFPAY ==
--- NOTE | 2024-12-14 09:51 | CT_ITS ---
WS: [id number] LDCT LUNG CANCER SCREENING TECHNIQUE: Noncontrast CT of the chest with coronal and sagittal reformatted images. CLINICAL INFORMATION: NICOTINE DEPENDENCE, CIGARETTES COMPARISON: None. DLP: 64.39 mGy.cm DIvol: Mean CTDIvol: 1.20 (mGy) All CT scans at [facility] use at least one of these dose optimization techniques: automated exposure control; mA and/or kV adjustment per patient size (includes targeted exams where dose is matched to clinical indication); or iterative reconstruction. FINDINGS: Lungs are well aerated. No new suspicious pulmonary parenchymal abnormalities. No mediastinal or hilar lymphadenopathy. Cholecystectomy clips. Normal caliber thoracic aorta. No axillary lymphadenopathy. Adrenal glands are normal. Small esophageal hiatal hernia. CT/CT lung screening [id number] IMPRESSION: LUNG-RADS: 1-Negative FOLLOW UP: 12 Month: Continue annual screening with LDCT
== END 2024-12-14 09:50 | disposition home or self-care (01) ==
LOC: RAD 09:50
PROVIDERS: PCP Nurse Practitioner Family; Visit Provider Nurse Practitioner Family
DX: Z12.2 Encounter for screening for malignant neoplasm of respiratory organs (principal); F17.210 Nicotine dependence, cigarettes, uncomplicated; Z90.49 Acquired absence of other specified parts of digestive tract; K44.9 Diaphragmatic hernia without obstruction or gangrene
CPT/HCPCS: 71271

== ENCOUNTER 2024-12-31 08:56 | Outpatient (CLI) | payer MEDICARE, SELFPAY ==
--- NOTE | 2024-12-31 09:00 | MM_ITS ---
WS: [id number] BILATERAL SCREENING DIGITAL TOMOSYNTHESIS MAMMOGRAM WITH CAD HISTORY: SCREENING COMPARISON: 10/14/2023, 06/06/2022 Bilateral CC and MLO views with tomosynthesis and synthetic mammography submitted. Computer aided detection analyzed. Breast composition: The breasts are heterogeneously dense, which may obscure small masses. No suspicious masses, microcalcifications or architectural distortion. Numerous bilateral benign calcifications in each breast. MM/MM scr tomosynthesis [id number] IMPRESSION: BI-RADS: 2 - Benign FOLLOW UP: 1 Year Follow-up
== END 2024-12-31 08:57 | disposition home or self-care (01) ==
LOC: RAD 08:57
PROVIDERS: PCP Nurse Practitioner Family; Visit Provider Nurse Practitioner Family
DX: Z12.31 Encounter for screening mammogram for malignant neoplasm of breast (principal); R92.333 Mammographic heterogeneous density, bilateral breasts; R92.1 Mammographic calcification found on diagnostic imaging of breast
CPT/HCPCS: 77063; 77067

== ENCOUNTER → 2025-01-06 14:57 | Outpatient (BNVA) | payer MEDICARE, SELFPAY | PROVIDERS: PCP Nurse Practitioner Family; Visit Provider Psychiatry & Neurology Neurology | DX: R20.2 Paresthesia of skin (principal); R68.89 Other general symptoms and signs; R29.898 Other symptoms and signs involving the musculoskeletal system | CPT/HCPCS: 99212 ==

== ENCOUNTER → 2025-05-31 11:11 | Outpatient (BNVA) | payer MEDICARE, SELFPAY | PROVIDERS: PCP Nurse Practitioner Family; Visit Provider Internal Medicine Cardiovascular Disease | DX: I77.9 Disorder of arteries and arterioles, unspecified (principal); I10 Essential (primary) hypertension; E78.5 Hyperlipidemia, unspecified; F17.210 Nicotine dependence, cigarettes, uncomplicated; I65.23 Occlusion and stenosis of bilateral carotid arteries | CPT/HCPCS: 99214 ==

== ENCOUNTER 2025-06-11 15:09 | Outpatient (CLI) | payer MEDICARE, SELFPAY ==
--- NOTE | 2025-06-11 15:15 | USCV_ITS ---
MattDawna Age: 69 Gender: F : 1955 Exam Date: 06/11/2025 15:30 Ordering Phys: Mona Bull MD ([email or web address]) Technologist: Exam [place] [facility] [place] Indication: occlusion Risk Factors: Previous Vascular Surgery: Right Brachial BP: / Left Brachial BP: / Right Left Velocity (cm/s) Spectral Plaque Velocity (cm/s) Spectral Plaque Syst/Diast Broadening Syst/Diast Broadening 113.00/27.20 Prox CCA 113.00/ 28.10 103.50/23.50 Mid CCA 119.30/ 32.40 77.00/ 17.00 Distal CCA 114.30/ 30.50 103.70/16.20 Prox ICA 98.90 / 29.10 87.90/ 22.70 Mid ICA 104.10/ 27.70 103.50/35.60 Distal ICA 79.80 / 28.80 102.40 ECA 132.70 1.30 ICA/CCA 0.90 Not Vertebral Antegrade Visualized 103.4/ 24.30 cm/s 60.30/ 10.30 cm/s 0 Tri Subclavian Tri 251.1 170.7 0 0 FINDINGS Comparison:. 01/28/24 No significant elevation of systolic or diastolic velocities. Waveforms are mildly turbulent. Calcified laque in the bifurcations. CONCLUSIONS Bilateral ICA stenosis less than 50%. Mild carotid atherosclerosis in the bifurcations. No interval change in stenosis since prior exam. Dr. Soraya Bosch DO (Electronically Signed) Final Date: 14 June 2025 07:47 S
== END 2025-06-11 15:10 | disposition home or self-care (01) ==
LOC: RAD 15:10
PROVIDERS: PCP Nurse Practitioner Family; Visit Provider Internal Medicine Cardiovascular Disease
DX: I65.23 Occlusion and stenosis of bilateral carotid arteries (principal)
CPT/HCPCS: 93880